=== PATIENT | male | born 1940 | race Caucasian/White ===

== ENCOUNTER 2018-08-08 13:31 | Emergency (ER) | payer MEDICARE, OTHER ==
[~2018-08-08] VITALS: Ht 182.9 cm; Wt 86.6 kg
[~2018-08-08 13:31] MED LIST: ERTA1VIA IV; FINA5TAB3 PO; FLO0.4C PO; LEVO100T9 PO; [UNRECOGNIZED DRUG - CODE] IV
[2018-08-08 14:28] LABS: UA COLLECTION TYPE CLN CATCH MIDSTREAM
[2018-08-08 14:39] LABS: RBC,URINE TNTC /HPF (0-2); WBC,URINE NONE SEEN /HPF (0-4)
[2018-08-08 14:40] LABS: BACTERIA,URINE NONE SEEN /HPF (Neg); SQUAMOUS EPITHELIAL CELL,UR NONE SEEN /LPF (FEW)
[2018-08-08 15:11] LABS: BASOPHILS % (AUTO) 0.4 % (0-1); EOSINOPHILS # (AUTO) 0.1 X10'3 (0-0.9); EOSINOPHILS % (AUTO) 0.9 % (0-6); HEMATOCRIT 54.6 % (42.0-52.0); HEMOGLOBIN 17.9 g/dl (14.0-17.9); LYMPHOCYTES # (AUTO) 0.9 X10'3 (1.1-4.8); LYMPHOCYTES % (AUTO) 11.2 % (21-51); MEAN CORPUSCULAR HEMOGLOBIN 31.8 PG (27.0-31.0); MEAN CORPUSCULAR HGB CONC 32.7 % (33.0-36.5); MEAN CORPUSCULAR VOLUME 97.2 FL (78-98); MEAN PLATELET VOLUME 8.9 FL (7.4-10.4); MONOCYTES # (AUTO) 0.5 X10'3 (0-0.9); NEUTROPHILS # (AUTO) 6.8 X10'3 (1.8-7.7); NEUTROPHILS % (AUTO) 81.5 % (42-75); PLATELET COUNT 193 X10'3 (140-440); RED BLOOD COUNT 5.62 X10'6 (4.70-6.10); RED CELL DISTRIBUTION WIDTH 13.7 % (11.5-14.5); WHITE BLOOD COUNT 8.4 X10'3 (4.5-11.0)
[2018-08-08 15:41] LABS: ALANINE AMINOTRANSFERASE 29 U/L (12-78); ALBUMIN 4.2 G/DL (3.4-5.0); ALKALINE PHOSPHATASE 55 IU/L (46-116); ANION GAP 12 (8-16); ASPARTATE AMINO TRANSFERASE 22 U/L (10-37); BILIRUBIN,TOTAL 0.5 MG/DL (0.1-1.0); BLOOD UREA NITROGEN 19 MG/DL (7-18); BUN/CREATININE RATIO 20.7 (5.4-32.0); CALCIUM 9.3 MG/DL (8.5-10.1); CHLORIDE 102 MMOL/L (99-107); CREATININE 0.92 MG/DL (0.60-1.10); GLUCOSE 101 MG/DL (70-104); POTASSIUM 4.5 MMOL/L (3.5-5.1); SODIUM 140 MMOL/L (135-145); TOTAL CARBON DIOXIDE 26.5 MMOL/L (24-32); TOTAL PROTEIN 8.3 G/DL (6.4-8.2); eGFR 80 ML/MIN
[2018-08-08] MEDS ORDERED: tranexamic acid inj. 1,000 MG in normal saline 100ml IV soln 100 ML IV ONE (16:05)
[2018-08-08 18:13] VITALS: BP 187/97
--- NOTE | 2018-08-08 18:18 | NUR ---
IRRIGATED BLADDER WITH 500CC NORMAL SALINE. FEW SMALL CLOTS FROM IRRIGATION. WHEN CATH REMOVED PT VOIDED 300CC WITH 2 LARGE BLOOD CLOTS AND SEVERAL SMALL CLOTS. PT TOLERATED WELL. DENIES PAIN OR DISCOMFORT.
== END 2018-08-08 18:52 | disposition home or self-care (01) ==
LOC: ER 13:31
DX: R31.0 Gross hematuria (principal); D67 Hereditary factor IX deficiency; R93.49 Abnormal radiologic findings on diagnostic imaging of other urinary organs; E03.9 Hypothyroidism, unspecified; F17.200 Nicotine dependence, unspecified, uncomplicated; Z98.890 Other specified postprocedural states; Z79.899 Other long term (current) drug therapy
CPT/HCPCS: 36415; 51700; 74176; 80053; 81001; 85025; 96365; 99284; J7030

== ENCOUNTER 2022-07-19 11:38 | Emergency (ER) | payer MEDICARE, OTHER ==
[~2022-07-19] VITALS: Ht 182.9 cm; Wt 82.0 kg
[2022-07-19 11:43] VITALS: BP 201/96
[2022-07-19] MEDS ORDERED: proparacaine 0.5% ophthalmic drops 15ml EACHEYE ONE (17:15)
[2022-07-19] MEDS ORDERED: ciprofloxacin 0.3% 2.5ml ophthalmic solution RIGHTEYE ONE (17:45)
== END 2022-07-19 17:57 | disposition home or self-care (01) ==
LOC: ER 11:39
DX: S05.01XA Injury of conjunctiva and corneal abrasion without foreign body, right eye, initial encounter (principal); X58.XXXA Exposure to other specified factors, initial encounter; Y93.89 Activity, other specified; Y92.89 Other specified places as the place of occurrence of the external cause; Y99.8 Other external cause status
CPT/HCPCS: 99283

== ENCOUNTER 2024-07-13 07:00 | Inpatient (IN) | payer MEDICARE, OTHER ==
[2024-07-06 13:11] LABS: BILIRUBIN,URINE NEGATIVE (Neg); CLARITY,URINE CLEAR (Clear); COLOR,URINE YELLOW (Yellow); GLUCOSE, URINE NEGATIVE (Neg); KETONES,URINE NEGATIVE (Neg); LEUKOCYTE ESTERASE ,URINE NEGATIVE (Neg); NITRITES, URINE NEGATIVE (Neg); OCCULT BLOOD,URINE MODERATE (Neg); PROTEIN,URINE TRACE mg/dl (Neg); UROBILINOGEN,URINE 0.2 E.U/dL (0.2-1.0)
[2024-07-06 13:12] LABS: BASOPHILS # (AUTO) 0.1 X10'3 (0-0.2); BASOPHILS % (AUTO) 0.9 % (0-1); EOSINOPHILS # (AUTO) 0.2 X10'3 (0-0.9); EOSINOPHILS % (AUTO) 2.8 % (0-6); LYMPHOCYTES # (AUTO) 1.2 X10'3 (1.1-4.8); LYMPHOCYTES % (AUTO) 19.6 % (21-51); MEAN CORPUSCULAR HEMOGLOBIN 33.3 PG (27.0-31.0); MEAN CORPUSCULAR HGB CONC 33.6 g/dL (33.0-36.5); MEAN CORPUSCULAR VOLUME 99.1 FL (78-98); MEAN PLATELET VOLUME 8.8 FL (7.4-10.4); MONOCYTES # (AUTO) 0.5 X10'3 (0-0.9); MONOCYTES % (AUTO) 8.6 % (2-12); NEUTROPHILS # (AUTO) 4.3 X10'3 (1.8-7.7); NEUTROPHILS % (AUTO) 68.1 % (42-75); PRE OP HEMATOCRIT 47.3 % (42.0-52.0); PRE OP HEMOGLOBIN 15.9 g/dL (14.0-17.9); PRE OP PLATELET COUNT 206 X10'3 (140-440); PRE OP WHITE BLOOD COUNT 6.4 10'3 (4.8-10.8); RED BLOOD COUNT 4.78 X10'6 (4.70-6.10); RED CELL DISTRIBUTION WIDTH 14.5 % (11.5-14.5)
[2024-07-06 13:17] LABS: UA COLLECTION TYPE CLN CATCH MIDSTREAM
[2024-07-06 13:22] LABS: PRE OP INR 1.2 INR; PRE OP PROTIME 12.4 SECONDS (9.0-12.0)
[2024-07-06 13:27] LABS: SQUAMOUS EPITHELIAL CELL,UR FEW /LPF (FEW); WBC,URINE 0-4 /HPF (0-4)
[2024-07-06 13:28] LABS: BACTERIA,URINE NONE SEEN /HPF (Neg)
[2024-07-06 13:59] LABS: ALBUMIN 4.1 G/DL (3.4-5.0); ALKALINE PHOSPHATASE 48 IU/L (46-116); BLOOD UREA NITROGEN 22 MG/DL (7-18); CALCIUM 9.1 MG/DL (8.5-10.1); CHLORIDE 101 MMOL/L (99-107); CREATININE 1.16 MG/DL (0.60-1.10); PRE OP ALT 19 U/L (30-65); PRE OP ANION GAP 4 (8-16); PRE OP AST 21 U/L (10-37); PRE OP BILIRUB, TOTAL 0.6 MG/DL (0.0-1.0); PRE OP GLUCOSE 91 MG/DL (70-104); PRE OP POTASSIUM 4.5 MMOL/L (3.4-5.1); PRE OP SODIUM 135 MMOL/L (135-145); TOTAL CARBON DIOXIDE 30.2 MMOL/L (24-32); TOTAL PROTEIN 8.2 G/DL (6.4-8.2); eGFR 60 ML/MIN
[~2024-07-13] VITALS: Ht 182.9 cm; Wt 85.0 kg
[~2024-07-13 07:00] MED LIST changes: -ERTA1VIA IV; -FINA5TAB3 PO; -FLO0.4C PO; -[UNRECOGNIZED DRUG - CODE] IV
[2024-07-13] MEDS ORDERED: APIX2.5T PO (10:26)
[2024-07-14] VITALS (30 sets, daily range): BP systolic 124–172; BP diastolic 64–90; PULSE 59–69; RESP 11–20; TEMP 97.4–98; O2SAT 93–100
[2024-07-14] MEDS: ceFAZolin 2gm in dextrose, iso 50 ML IV ONE (05:30)
[2024-07-14] MEDS ORDERED: iohexol 350MG/ML 100ml bottle IV ONE (06:27)
[2024-07-14] MEDS: [UNRECOGNIZED DRUG - OTHER] IV ONE (06:27)
[2024-07-14] MEDS: famotidine 20mg tablet PO ONE (06:27)
[2024-07-14] MEDS: VANCOMYCIN 1,500MG inj. 1,500 MG in normal saline 500ml IV soln 300 ML IV ONE (06:27)
[2024-07-14] MEDS: ringers solution, lacted 1,000 ML IV SCH (06:27)
[2024-07-14] MEDS ORDERED: morphine 2 MG/ML inj. syringe IV PRN (06:45)
[2024-07-14] MEDS ORDERED: ondansetron/PF 4mg/2ml inj IV PRN ×2 (06:45→08:20)
[2024-07-14] MEDS ORDERED: labetalol 20mg/4ml (5mg/ml) syringe IV PRN ×2 (06:45→08:20)
[2024-07-14] MEDS ORDERED: morphine 4 MG/ML inj SYRINge IV PRN (06:45)
[2024-07-14] MEDS ORDERED: meperidine/PF 25mg/ml syringe IV PRN ×3 (06:45)
[2024-07-14] MEDS ORDERED: ringers solution, lacted 1,000 ML IV SCH (06:45)
[2024-07-14] MEDS ORDERED: proCHLORperazine 10 MG/2 ml inj IV PRN ×2 (06:45→08:20)
[2024-07-14] MEDS ORDERED: sevoflurane 250ml liquid IH ONE (06:51)
[2024-07-14] MEDS ORDERED: fentaNYL/PF 50MCG/1 ML 2ML syringe ONE (06:57)
[2024-07-14] MEDS ORDERED: midazolam 1 mg/ML 2ml injection ONE (06:57)
[2024-07-14] MEDS ORDERED: propofol inj 20 ML IV ONE (07:24)
[2024-07-14] MEDS ORDERED: heparin 1,000unit/ml 10ml vial 10 ML ONE (07:24)
[2024-07-14] MEDS ORDERED: ePHEDrine 50MG/ML INJ. ONE (07:26)
[2024-07-14] MEDS ORDERED: rocuronium 10mg/ml inj IV ONE (07:26)
[2024-07-14] MEDS ORDERED: potassium CL 10mEq/100ml bag 100 ML IV PRN (08:20)
[2024-07-14] MEDS ORDERED: magnesium sulf-water 2g/50mL 50 ML IV PRN (08:20)
[2024-07-14] MEDS ORDERED: docusate sod 100mg capsule PO PRN (08:20)
[2024-07-14] MEDS ORDERED: ALPRAZolam 0.25mg tablet PO PRN (08:20)
[2024-07-14] MEDS ORDERED: diphenhydrAMINE 25mg capsule PO PRN (08:20)
[2024-07-14] MEDS ORDERED: potassium Cl 40MEQ/270ML bag 250 ML IV PRN (08:20)
[2024-07-14] MEDS ORDERED: hydrALAZINE 20mg/ml inj. IV PRN (08:20)
[2024-07-14] MEDS ORDERED: potassium Cl 20 mEq SR tablet PO PRN (08:20)
[2024-07-14] MEDS ORDERED: potassium Cl 40MEQ/1/2NS 520ml 520 ML IV PRN (08:20)
[2024-07-14] MEDS ORDERED: pantoprazole 40mg Tablet.DR PO PRN (08:20)
[2024-07-14] MEDS ORDERED: magnesium sulf-water 4G/100mL 100 ML IV PRN (08:20)
[2024-07-14] MEDS ORDERED: HYDROcodone/acetaminophen 5mg/325mg tablet PO PRN (08:20)
[2024-07-14] MEDS ORDERED: potassium Cl 20mEq/100mL bag 100 ML IV PRN (08:20)
[2024-07-14] MEDS ORDERED: acetaminophen 325mg tablet PO PRN (08:20)
[2024-07-14] MEDS: HALLS - SOOTHE MENTHOL 1.8 MG cough drop LOZENGE MM PRN (15:37)
[2024-07-14] MEDS: sod chloride 0.9% 10ml flush syringe IV SCH (16:00)
[2024-07-14] MEDS: normal saline 1000ml 1,000 ML IV SCH (18:20)
[2024-07-14] MEDS: ceFAZolin 1GM/D5W- ADD-VANTAGE 50 ML IV SCH (18:39)
[2024-07-14] MEDS: VANCOMYCIN 1GM 200ML H20 (PEG) 200 ML IV SCH (20:05)
[2024-07-15 02:00] VITALS: BP 133/66; PULSE 63; RESP 14; TEMP 97.8; O2SAT 98
[2024-07-15 06:00] VITALS: BP 134/62; PULSE 70; RESP 15; TEMP 98.9; O2SAT 95
[2024-07-15 07:25] LABS: BASOPHILS % (AUTO) 0.6 % (0-1); EOSINOPHILS # (AUTO) 0.4 X10'3 (0-0.9); EOSINOPHILS % (AUTO) 5.3 % (0-6); HEMOGLOBIN 13.9 g/dl (14.0-17.9); LYMPHOCYTES # (AUTO) 0.8 X10'3 (1.1-4.8); MEAN CORPUSCULAR HEMOGLOBIN 33.6 PG (27.0-31.0); MEAN CORPUSCULAR HGB CONC 34.1 g/dL (33.0-36.5); MEAN CORPUSCULAR VOLUME 98.7 FL (78-98); MEAN PLATELET VOLUME 8.3 FL (7.4-10.4); MONOCYTES # (AUTO) 0.8 X10'3 (0-0.9); NEUTROPHILS # (AUTO) 4.7 X10'3 (1.8-7.7); NEUTROPHILS % (AUTO) 70.1 % (42-75); PLATELET COUNT 158 X10'3 (140-440); RED BLOOD COUNT 4.15 X10'6 (4.70-6.10); RED CELL DISTRIBUTION WIDTH 14.5 % (11.5-14.5); WHITE BLOOD COUNT 6.7 X10'3 (4.5-11.0)
[2024-07-15 07:41] LABS: INR 1.1 INR; PROTHROMBIN TIME 11.5 SECONDS (9.0-12.0)
[2024-07-15 08:00] VITALS: RESP 18; O2SAT 98
[2024-07-15 08:33] LABS: ALANINE AMINOTRANSFERASE 11 U/L (12-78); ALBUMIN 3.2 G/DL (3.4-5.0); ALKALINE PHOSPHATASE 43 IU/L (46-116); ANION GAP 8 (8-16); ASPARTATE AMINO TRANSFERASE 18 U/L (10-37); BILIRUBIN,TOTAL 0.6 MG/DL (0.1-1.0); BLOOD UREA NITROGEN 22 MG/DL (7-18); BUN/CREATININE RATIO 21.2 (10.0-20.0); CALCIUM 8.5 MG/DL (8.5-10.1); CHLORIDE 107 MMOL/L (99-107); CREATININE 1.04 MG/DL (0.60-1.10); GLUCOSE 103 MG/DL (70-104); MAGNESIUM 1.8 MG/DL (1.5-2.4); PRO BRAIN NATRIURETIC PEPTIDE 218 PG/ML (0-450); SODIUM 141 MMOL/L (135-145); TOTAL CARBON DIOXIDE 25.8 MMOL/L (24-32); TOTAL PROTEIN 6.5 G/DL (6.4-8.2); eCRCL 61 ML/MIN; eGFR 69 ML/MIN
[2024-07-15] MEDS: levoTHYROXINE 100mcg tablet PO SCH (09:42)
[2024-07-15] MEDS: apixaban 2.5mg tablet PO SCH (09:42)
[2024-07-15 11:00] VITALS: BP 144/76; PULSE 68; RESP 18; TEMP 98.2; O2SAT 98
== END 2024-07-15 15:20 | disposition home or self-care (01) | DRG 274 ==
LOC: PAS IN 07-14 05:37 → PCU 3S 07-14 16:28
PROVIDERS: ADMIT Student in an Organized Health Care Education/Training Program; ATTEND Student in an Organized Health Care Education/Training Program
PROC: B24BZZ4 Ultrasonography of Heart with Aorta, Transesophageal (ICD-10-PCS; 2024-07-14)
PROC: 02L73DK Occlusion of Left Atrial Appendage with Intraluminal Device, Percutaneous Approach (ICD-10-PCS; principal; 2024-07-14 06:51)
DX: I48.91 Unspecified atrial fibrillation (principal); Z00.6 Encounter for examination for normal comparison and control in clinical research program; D68.311 Acquired hemophilia; E03.9 Hypothyroidism, unspecified; Z79.01 Long term (current) use of anticoagulants
CPT/HCPCS: 33340; 36415; 71045; 71046; 76937; 80053; 81001; 82948; 83735; 83880; 84443; 85025; 85347; 85610; 85730; 86885; 86900; 86901; 86920; 87081; 93005; 93308; 93312; 93325; A4618; A6258; A6449; C1760; C1889; C1893; C1894; G0378; J0690; J1644; J2250; J2704; J2710; J3010; J3370; J3372; J3490; J7030; J7040; J7120; Q9967

== ENCOUNTER 2024-09-05 11:10 | Day surgery (SDC) | payer OTHER ==
[2024-09-05] VITALS (15 sets, daily range): BP systolic 143–196; BP diastolic 79–116; PULSE 60–65; RESP 14–24; TEMP 97.9; O2SAT 98–100
[~2024-09-05] VITALS: Ht 182.9 cm; Wt 86.8 kg
[~2024-09-05 11:10] MED LIST changes: +APIX2.5T PO
[2024-09-05 12:15] LABS: ALBUMIN 3.8 G/DL (3.4-5.0); ANION GAP 8 (8-16); BLOOD UREA NITROGEN 28 MG/DL (7-18); BUN/CREATININE RATIO 26.4 (10.0-20.0); CALCIUM 9.4 MG/DL (8.5-10.1); CHLORIDE 106 MMOL/L (99-107); CREATININE 1.06 MG/DL (0.60-1.10); GLUCOSE 92 MG/DL (70-104); POTASSIUM 4.2 MMOL/L (3.5-5.1); SODIUM 141 MMOL/L (135-145); TOTAL CARBON DIOXIDE 26.9 MMOL/L (24-32); eCRCL 60 ML/MIN; eGFR 67 ML/MIN
[2024-09-05 12:22] LABS: BASOPHILS % (AUTO) 0.5 % (0-1); EOSINOPHILS # (AUTO) 0.2 X10'3 (0-0.9); EOSINOPHILS % (AUTO) 2.2 % (0-6); HEMOGLOBIN 15.2 g/dl (14.0-17.9); LYMPHOCYTES # (AUTO) 0.9 X10'3 (1.1-4.8); LYMPHOCYTES % (AUTO) 10.5 % (21-51); MEAN CORPUSCULAR HEMOGLOBIN 33.2 PG (27.0-31.0); MEAN CORPUSCULAR HGB CONC 33.8 g/dL (33.0-36.5); MEAN CORPUSCULAR VOLUME 98.3 FL (78-98); MEAN PLATELET VOLUME 8.9 FL (7.4-10.4); MONOCYTES # (AUTO) 0.9 X10'3 (0-0.9); MONOCYTES % (AUTO) 10.2 % (2-12); NEUTROPHILS # (AUTO) 6.7 X10'3 (1.8-7.7); NEUTROPHILS % (AUTO) 76.6 % (42-75); PLATELET COUNT 208 X10'3 (140-440); RED BLOOD COUNT 4.58 X10'6 (4.70-6.10); RED CELL DISTRIBUTION WIDTH 15.1 % (11.5-14.5); WHITE BLOOD COUNT 8.8 X10'3 (4.5-11.0)
[2024-09-05 12:39] LABS: APTT 38 SECONDS (22-32); INR 1.3 INR
[2024-09-05] MEDS: fentaNYL/PF 50MCG/1 ML 2ML syringe IV ONE (13:09)
[2024-09-05] MEDS: MIDAZolam 1mg/ml 10ml vial IV ONE (13:10)
[2024-09-05] MEDS ORDERED: ASPI-612 PO (14:11)
[2024-09-05] MEDS ORDERED: CLOP75TA33 PO (14:11)
== END 2024-09-05 14:35 | disposition home or self-care (01) ==
LOC: SSTAY O 11:10
PROVIDERS: ATTEND Student in an Organized Health Care Education/Training Program
DX: I49.5 Sick sinus syndrome (principal); E03.9 Hypothyroidism, unspecified; Z86.19 Personal history of other infectious and parasitic diseases; Z79.899 Other long term (current) drug therapy; Z85.828 Personal history of other malignant neoplasm of skin
CPT/HCPCS: 36415; 80048; 85025; 85610; 85730; 93312; 93325; 94760; J2250; J3010; J7030